=== PATIENT | female | born 1950 | race Caucasian/White ===

== ENCOUNTER 2019-08-20 10:03 | Outpatient (CLI) | payer MEDICARE, OTHER, SELFPAY ==
--- NOTE | 2019-08-20 18:10 | ONC CON_ITS ---
Dr. Conroy New Patient Note Patient: Lindsay Felix Unit #: [id number]: 1950 Dicatated By: Timo Conroy M.D.Date of Visit: Aug 20, 2019 Onc MED New Patient/Consult Referring Physician: Dr. VITO CRAIG D.O. Chief Complaint: Breast cancer. History of Present Illness: This is a 69 year-old woman with grade 3 invasive ductal carcinoma of the right breast, stage IIA (pT2, pN0, M0), ER/SD positive, HER-2/risa negative, and Oncotype DX score 12. She had presented in the latter part of 2018 with a lump in her right breast. At the time she was living in [facility]. Based on her clinical evaluation there, malignancy was suspected, and she then returned home to the [facility] for further treatment. Right diagnostic mammogram on 02/18/2019 reported a 2.9 cm mass at the 11 o'clock position of the right breast with normal-appearing right axillary lymph nodes. Biopsy of the breast mass on 02/19/2019 showed grade 2 invasive ductal carcinoma which was ER +100% and SD positive at 95%. There is reported to be negative for overexpression of HER-2/risa. The Ki-67 was 15%. She underwent right breast lumpectomy with axillary sentinel lymph node biopsy on 03/23/2019. Pathology showed grade 3 invasive ductal carcinoma measuring 4.5 cm. DCIS was noted to be present. Lymphovascular invasion also was present. The margins were negative. There was no involvement in 3 lymph nodes. She then underwent radiation to the right breast, completed on 05/22/2019 to a total dose of 4256 cGy to the breast with an additional 400 cGy cavity boost. She did develop some skin reaction and fatigue during the radiation, but overall she tolerated it well. Based on her Oncotype DX score, adjuvant chemotherapy was not recommended. She began adjuvant hormonal therapy with anastrozole 1 mg daily concurrently with the radiation. She has now moved to this area and she wishes to continue follow-up for her breast cancer here. She has been feeling pretty good generally. She does complain that she tires quickly, and that she now attributes to the anastrozole. Her ECOG score is 1. She has good appetite. She has had a weight gain of 25 pounds since returning from [place]. She thinks most of that is related to being less active. She has not had fever. She has had some hot flashes and sweating with the anastrozole, but she feels that it is tolerable. She indicates that she developed significant nerve damage from her axillary lymph node biopsy, including numbness and the axillary area and pain rating down the right arm. Her numbness has subsequently improved. She still has pain intermittently, but it is managed adequately with gabapentin. She does not have any significant joint or bone pain. She apparently did have a baseline bone density, but I do not have that report available. Past Medical History: Her medical history includes anxiety, atrophic kidney, chronic kidney disease, depression, glaucoma, and hypertension. Past Surgical History: She underwent biopsy of right breast mass on 02/19/2019 and she underwent right breast lumpectomy with axillary sentinel lymph node biopsy on 03/23/2019. Her other surgical/procedural history includes right foot surgery and tubal ligation. She had a colonoscopy in 2017. Medications: ALPRAZolam 1 Tablet (of 0.5 mg) Oral at bedtime PRN, Anastrozole 1 Tablet (of 1 mg) Oral daily, Furosemide 1 Tablet (of 20 mg) Oral daily, Gabapentin 1 Capsule (of 100 mg) Oral t.i.d., Latanoprost 1 Drop(s) (of 0.005 %) Solution Ophthalmic daily, Sertraline HCl 1 Tablet (of 100 mg) Oral daily, Spironolactone 1 Tablet (of 100 mg) Oral b.i.d., Timolol Hemihydrate 1 Drop(s) (of 0.5 %) Solution Ophthalmic daily Allergies: Codeine Sulfate, Iodine, and Penicillins. Social History: Ms. Felix is and she is retired. She is a non-smoker. She does not drink alcohol. Family History: Her father is , cause unknown to the patient. Her mother had heart disease and at age 90. Her maternal grandfather of heart attack. She has 2 older sisters who are in good health. There is no history of breast or ovarian cancer in the family. Review Of Symptoms: Constitutional - She has been feeling tired since she started the anastrozole. She has good appetite. She has had a 25 pound weight gain, which she attributes to being less active. She has not had fever. She does have hot flashes/sweating a few times a day and at night. ECOG score is 1, Eyes - She has glaucoma. She has had no recent change in vision, ENMT - No hearing loss or tinnitus. No sinus congestion/drainage. No mouth sores. No sore throat or difficulty swallowing, Hematologic/Lymphatic - No abnormal bruising or bleeding, Respiratory - No shortness of breath. No cough. No pleuritic pain or hemoptysis, Cardiovascular - No angina pain. No palpitations, Gastrointestinal - No nausea or vomiting. No heartburn or acid reflux. No diarrhea or constipation. No blood in the stool or black stools, Genitourinary (F) - No dysuria or hematuria. No urinary frequency. No urgency or incontinence, Musculoskeletal - No joint or bone pain, Integumentary - No skin rash or other skin changes, Neurologic - No headache or dizziness. She was having numbness/tingling in the right axillary area and right arm following the surgery. The numbness has resolved, but she still has significant neuropathy pain in her right arm. She does get benefit with gabapentin, Psychiatric - She has anxiety and depression, adequately managed with medication. She also has insomnia. Vital Signs: Performed on Aug 20, 2019 11:08: 7, 34.86 (HIGH), 2.07 sq.m, 66.00 in, 96 %, 86 /min, 24 /min, 168/100 mm(hg) (HIGH), 97.9 F (LOW), and 216.0 lbs (HIGH). Physical Examination: Constitutional - She appears to be in good general health, Eyes - Sclerae nonicteric. Conjunctivae clear, ENMT - No lesions noted in the oral cavity, Neck - No mass or thyromegaly, Hematologic/Lymphatic - No cervical or clavicular adenopathy, Respiratory - Lungs are clear with good air movement bilaterally, Cardiovascular - Heart rhythm is regular. There is no murmur, gallop, or rub noted, Breasts - There is mild induration throughout the right breast and there is mild residual erythema/discoloration. There are no breast masses noted. There is no axillary adenopathy, Abdomen - Moderately distended. Liver and spleen are not enlarged. There is no abdominal mass or ascites noted and there is no inguinal adenopathy, Back/Spine - No spine or CVA tenderness noted, Extremities - No edema. Dorsalis pedis pulses are palpable bilaterally, Integumentary - No rashes. No suspicious skin lesions noted, Neurologic - No focal neurologic deficits noted. Impression: 1. Patient with grade 3 invasive ductal carcinoma of the right breast, stage IIA (pT2, pN0, M0), ER/SD positive, HER-2/risa negative, and Oncotype DX score 12. 2. She underwent biopsy of right breast mass on 02/19/2019 followed by right breast lumpectomy with axillary sentinel lymph node biopsy on 03/23/2019. Based on the Oncotype DX score, adjuvant chemotherapy was not recommended. 3. She then underwent radiation to the right breast, completed on 05/22/2019 to a total dose of 4256 cGy to the breast plus an additional 400 cGy cavity boost. 4. Adjuvant hormonal therapy with anastrozole 1 mg daily began concurrently with radiation. Her other medical illnesses include: 5. Hypertension. 6. Chronic kidney disease. 7. She has history of atrophic kidney. 8. Glaucoma. 9. Anxiety/depression. She had developed some toxicity with the radiation, she does appear to be showing adequate recovery. She also has had some neuropathy pain in the right arm following her axillary lymph node biopsy. Thus far it has been managed adequately with a low-dose of gabapentin. She is experiencing some fatigue and hot flashes with the anastrozole, but at this point the side effects appear tolerable. Overall, she appears to be doing pretty well clinically following completion of her surgery and radiation. Plan: She will continue adjuvant hormonal therapy with anastrozole 1 mg daily. She had laboratory studies done earlier today by Dr. Craig, and I will check on those results. She will continue her regular follow-up and laboratory monitoring with Dr. Craig. I will schedule her for surveillance diagnostic mammograms in January. I will see her for a follow-up visit in 6 months. Signed By: Timo Conroy M.D. <<Signature on File>>
== END 2019-08-20 10:04 | disposition home or self-care (01) ==
LOC: ONCMED 10:13
PROVIDERS: PCP Family Medicine; Referring Provider Family Medicine; Visit Provider Internal Medicine Medical Oncology
DX: C50.411 Malignant neoplasm of upper-outer quadrant of right female breast (principal); Z17.0 Estrogen receptor positive status [ER+]; I12.9 Hypertensive chronic kidney disease with stage 1 through stage 4 chronic kidney disease, or unspecified chronic kidney disease; N18.9 Chronic kidney disease, unspecified; F41.8 Other specified anxiety disorders; H40.9 Unspecified glaucoma; M79.2 Neuralgia and neuritis, unspecified; Y84.8 Other medical procedures as the cause of abnormal reaction of the patient, or of later complication, without mention of misadventure at the time of the procedure; Z79.811 Long term (current) use of aromatase inhibitors; Z92.3 Personal history of irradiation
CPT/HCPCS: 80053; 80061; 82044; 85025; 99205

== ENCOUNTER → 2019-09-01 10:56 | Outpatient (BNVA) | payer MEDICARE, OTHER, SELFPAY | PROVIDERS: PCP Family Medicine; Visit Provider Family Medicine | DX: E87.6 Hypokalemia (principal) | CPT/HCPCS: 80048 ==

== ENCOUNTER → 2019-11-20 09:40 | Outpatient (BNVA) | payer MEDICARE, OTHER, SELFPAY | PROVIDERS: PCP Family Medicine; Visit Provider Family Medicine | DX: I10 Essential (primary) hypertension (principal); N26.1 Atrophy of kidney (terminal) | CPT/HCPCS: 80048 ==

== ENCOUNTER → 2019-11-24 11:34 | Outpatient (BNVA) | payer MEDICARE, OTHER, SELFPAY | PROVIDERS: PCP Family Medicine; Visit Provider Family Medicine | DX: Z11.59 Encounter for screening for other viral diseases (principal); Z20.828 Contact with and (suspected) exposure to other viral communicable diseases | CPT/HCPCS: 87635 ==

== ENCOUNTER → 2019-11-26 10:11 | Outpatient (BNVA) | payer MEDICARE, OTHER, SELFPAY | PROVIDERS: PCP Family Medicine; Visit Provider Family Medicine | DX: R79.89 Other specified abnormal findings of blood chemistry (principal) | CPT/HCPCS: 80048 ==

== ENCOUNTER → 2019-12-11 09:52 | Outpatient (BNVA) | payer MEDICARE, OTHER, SELFPAY | PROVIDERS: PCP Family Medicine; Visit Provider Family Medicine | DX: I10 Essential (primary) hypertension (principal); N26.1 Atrophy of kidney (terminal); G25.0 Essential tremor | CPT/HCPCS: 80048 ==

== ENCOUNTER → 2020-01-11 09:22 | Outpatient (BNVA) | payer MEDICARE, OTHER, SELFPAY | PROVIDERS: PCP Family Medicine; Visit Provider Family Medicine | DX: I10 Essential (primary) hypertension (principal) | CPT/HCPCS: 80048 ==

== ENCOUNTER 2020-02-22 07:36 | Outpatient (CLI) | payer MEDICARE, OTHER, SELFPAY ==
--- NOTE | 2020-02-22 07:42 | MM_ITS ---
WS: [id number] DIAGNOSTIC BILATERAL DIGITAL MAMMOGRAM WITH CAD HISTORY: HX OF BREAST CA COMPARISON: There are no prior mammograms available for review. Prior imaging report from [facility] in [facility] reviewed. Report from 02/18/2019 is reviewed which described a BI-RADS 5 mass in the RIGHT breast. TECHNIQUE: Bilateral craniocaudad, mediolateral oblique, and mediolateral views are submitted. Comput er aided detection utilized. Breast composition: There are scattered areas of fibroglandular density. Postsurgical change with sca rring and distortion in the upper outer quadrant of the RIGHT breast. There are benign lucent calcifi cations also present. Overall increased trabecular thickening and skin thickening throughout the RIGH T breast. Surgical clip noted in the RIGHT axilla from prior mary dissection. MM/[place] [id number] IMPRESSION: BI-RADS: 0-Incomplete: Need additional imaging evaluation FOLLOW UP: See Report 1. No prior mammograms are available for review. Strongly recommend when these mammograms become available for review an addendum can be submitted. 2. Postsurgical and postradiation changes involving the RIGHT breast could carlee y well be all within normal limits for recent surgery and radiation. Correlatio n with prior studies to evaluate for subtle change recommended. If these prior mammograms do not become available for review diagnostic RIGHT breast mammogram follow-up in 6 months should be obtained.
== END 2020-02-22 07:37 | disposition home or self-care (01) ==
LOC: RADSHAW 07:41
PROVIDERS: PCP Family Medicine; Visit Provider Internal Medicine Medical Oncology
DX: Z85.3 Personal history of malignant neoplasm of breast (principal)
CPT/HCPCS: 77066

== ENCOUNTER 2020-02-25 07:17 | Outpatient (CLI) | payer MEDICARE, OTHER, SELFPAY ==
--- NOTE | 2020-02-28 11:02 | ONC FU_ITS ---
Dr. Conroy Patient Follow-Up Note Patient: Lindsay Felix Unit #: [id number]: 1950 Dicatated By: Timo Conroy M.D.Date of Visit:Feb 25, 2020 Onc Med Follow-up/Prog Note Chief Complaint: Breast cancer. History of Present Illness: This is a 69 year-old woman with grade 3 invasive ductal carcinoma of the right breast, stage IIA (pT2, pN0, M0), ER/IA positive, HER-2/risa negative. Oncotype DX was low risk with recurrence score 12. She had presented in the latter part of 2019 with a lump in her right breast. At the time she was living in [place]. Based on her clinical evaluation there, malignancy was suspected, and she then returned home to the [facility] for further treatment. Right diagnostic mammogram on 02/18/2019 reported a 2.9 cm mass at the 11 o'clock position of the right breast with normal-appearing right axillary lymph nodes. Biopsy of the breast mass on 02/19/2019 showed grade 2 invasive ductal carcinoma which was ER +100% and IA positive at 95%. There is reported to be negative for overexpression of HER-2/risa. The Ki-67 was 15%. She underwent right breast lumpectomy with axillary sentinel lymph node biopsy on 03/23/2019. Pathology showed grade 3 invasive ductal carcinoma measuring 4.5 cm. DCIS was noted to be present. Lymphovascular invasion also was present. The margins were negative. There was no involvement in 3 lymph nodes. She then underwent radiation to the right breast, completed on 05/22/2019 to a total dose of 4256 cGy to the breast with an additional 400 cGy cavity boost. She did develop some skin reaction and fatigue during the radiation, but overall she tolerated it well. Based on her Oncotype DX score, adjuvant chemotherapy was not recommended. She began adjuvant hormonal therapy with anastrozole 1 mg daily concurrently with the radiation. She had subsequently moved to this area. I had seen her initially on 08/20/2019 for further management of her breast cancer. Her other medical illnesses include hypertension, chronic kidney disease, glaucoma, and anxiety/depression. She has a history of atrophic kidney. She is a non-smoker. She is seen for a follow-up visit. She has been feeling pretty good generally. She does complain that she is tired most of the time, but she still has normal activity. ECOG score is 0. She has good appetite. She has not had fever. She has a little bit of hot flashes/sweating. She does complain that she still has some soreness in the right arm and axillary area. It has generally been managed pretty well with gabapentin. She reports having some sinus drainage, which is chronic. She does not have cough, and she does not complain of shortness of breath or chest pain. She has no GI or complaints. She has no significant joint or bone pain. She does report that she has been a little shaky. She has no focal neurologic symptoms. Medications: ALPRAZolam 1 Tablet (of 0.5 mg) Oral at bedtime PRN, Anastrozole 1 Tablet (of 1 mg) Oral daily, Furosemide 1 Tablet (of 20 mg) Oral daily, Gabapentin 1 Capsule (of 100 mg) Oral t.i.d., Latanoprost 1 Drop(s) (of 0.005 %) Solution Ophthalmic daily, Metoprolol Tartrate 0.5 Tablet (of 25 mg) Oral b.i.d., Norvasc 1 (5 mg) Tablet Oral daily, Sertraline HCl 1 Tablet (of 100 mg) Oral daily, Spironolactone 1 Tablet (of 100 mg) Oral b.i.d., Timolol Hemihydrate 1 Drop(s) (of 0.5 %) Solution Ophthalmic daily Allergies: Codeine Sulfate, Iodine, and Penicillins. Vital Signs: Performed on Feb 25, 2020 08:51 Height - 66.00 in Weight - 214.4 lbs (LOW) BSA - 2.06 sq.m BMI - 34.61 (HIGH) Temperature - 97.8 F (LOW) Pulse - 96 /min Respiration - 16 /min BP - 142/94 mm(hg) (HIGH) O2 Sat - 96 % Pain - 0 Physical Examination: Constitutional - She looks good generally, Eyes - Sclerae nonicteric. Conjunctivae clear, ENMT - No lesions noted in the oral cavity, Hematologic/Lymphatic - No cervical or clavicular adenopathy, Respiratory - Lungs are clear with good air movement bilaterally, Cardiovascular - Heart rhythm is regular. There is no murmur, gallop, or rub noted, Breasts - There is nodularity at the lumpectomy site in the right breast, the breast is still slightly discolored. There is no other mass noted. There is no axillary adenopathy noted, Abdomen - Soft. Liver and spleen are not enlarged. There is no abdominal mass or ascites noted and there is no inguinal adenopathy, Extremities - No edema, Neurologic - No focal neurologic deficits noted. Historic Problem List: 1. Grade 3 invasive ductal carcinoma of the right breast, stage IIA (pT2, pN0, M0), ER/IA positive, HER-2/risa negative. Oncotype DX was low risk with recurrence score 12. 2. She underwent biopsy of right breast mass on 02/19/2019 followed by right breast lumpectomy with axillary sentinel lymph node biopsy on 03/23/2019. Based on the Oncotype DX score, adjuvant chemotherapy was not recommended. 3. She then underwent radiation to the right breast, completed on 05/22/2019 to a total dose of 4256 cGy to the breast plus an additional 400 cGy cavity boost. 4. Adjuvant hormonal therapy with anastrozole 1 mg daily began concurrently with radiation. 5. Hypertension. 6. Chronic kidney disease. 7. She has history of atrophic kidney. 8. Glaucoma. 9. Anxiety/depression. She had developed some toxicity with the radiation, she does appear to be showing adequate recovery. She also has had some neuropathy pain in the right arm following her axillary lymph node biopsy. Thus far it has been managed adequately with a low-dose of gabapentin. She is experiencing some fatigue and hot flashes with the anastrozole, but at this point the side effects appear tolerable. Overall, she appears to be doing pretty well clinically following completion of her surgery and radiation. Problems Addressed with this Encounter and Plan: Grade 3 invasive ductal carcinoma of the right breast, stage IIA (pT2, pN0, M0), ER/IA positive, HER-2/risa negative. Oncotype DX was low risk with recurrence score 12. Her treatment included right breast lumpectomy with axillary sentinel lymph node biopsy on 03/23/2019 followed by radiation to the right breast, completed on 05/22/2019 to a total dose of 4256 cGy to the breast plus an additional 400 cGy cavity boost. Based on the Oncotype DX score, adjuvant chemotherapy was not recommended. Adjuvant hormonal therapy with anastrozole 1 mg daily began concurrently with radiation. During follow-up she has continued to have some discomfort in the right arm and axillary area, but it has been managed adequately with gabapentin. She seems to tolerate the anastrozole with significant no adverse effects. Thus far there has been no evidence of recurrence of the breast cancer. She continues adjuvant hormonal therapy with anastrozole 1 mg daily. She will be scheduled for a follow-up visit in 6 months. She has require ongoing surveillance for bone health. She did have a DEXA scan prior to moving here in 2019. Signed By: Timo Conroy M.D. <<Signature on File>>
== END 2020-02-25 07:18 | disposition home or self-care (01) ==
LOC: ONCMED 07:21
PROVIDERS: PCP Family Medicine; Visit Provider Internal Medicine Medical Oncology
DX: C50.411 Malignant neoplasm of upper-outer quadrant of right female breast (principal); Z17.0 Estrogen receptor positive status [ER+]; G56.81 Other specified mononeuropathies of right upper limb; Z79.811 Long term (current) use of aromatase inhibitors; I12.9 Hypertensive chronic kidney disease with stage 1 through stage 4 chronic kidney disease, or unspecified chronic kidney disease; N18.9 Chronic kidney disease, unspecified; F41.8 Other specified anxiety disorders; Z92.3 Personal history of irradiation; Z79.899 Other long term (current) drug therapy
CPT/HCPCS: 99214

== ENCOUNTER → 2020-03-02 10:00 | Outpatient (BNVA) | payer MEDICARE, OTHER, SELFPAY | PROVIDERS: PCP Family Medicine; Visit Provider Family Medicine | DX: N18.31 Chronic kidney disease, stage 3a (principal) | CPT/HCPCS: 80069; 81003; 82043 ==

== ENCOUNTER 2020-05-24 08:22 | Outpatient (CLI) | payer MEDICARE, OTHER, SELFPAY ==
--- NOTE | 2020-05-24 08:33 | US_ITS ---
WS: [id number] RENAL ULTRASOUND HISTORY: STAGE 3 CHRONIC KIDNEY DZ COMPARISON: None available. TECHNIQUE: 2-D and color Doppler imaging of the kidney submitted. Right kidney: 10.0 cm x 4.1 cm x 5.4 cm. Normal echogenicity with no hydronephrosis or mass. Left kidney: 10.1 cm x 4.1 cm x 4.9 cm. Normal size kidney. Mild thinning of the renal cortex in the lower pole. No mass or obstruction. Aorta: Normal. Urinary Bladder: Nondistended. US/US renal BI* [id number] IMPRESSION: 1. Normal echogenicity of each kidney with no hydronephrosis. 2. Mild focal cortical thinning lower pole LEFT kidney.
== END 2020-05-24 08:23 | disposition home or self-care (01) ==
LOC: US 08:26
PROVIDERS: PCP Family Medicine; Visit Provider Internal Medicine Nephrology
DX: N18.30 Chronic kidney disease, stage 3 unspecified (principal)
CPT/HCPCS: 76770; 80069; 82043; 85025

== ENCOUNTER → 2020-09-06 08:20 | Outpatient (BNVA) | payer MEDICARE, OTHER, SELFPAY | PROVIDERS: PCP Family Medicine; Visit Provider Family Medicine | DX: I10 Essential (primary) hypertension (principal); G25.0 Essential tremor; E78.5 Hyperlipidemia, unspecified; F41.9 Anxiety disorder, unspecified; F32.9 Major depressive disorder, single episode, unspecified | CPT/HCPCS: 80053; 80061 ==

== ENCOUNTER 2020-10-04 15:51 | Outpatient (CLI) | payer MEDICARE, OTHER, SELFPAY ==
--- NOTE | 2020-10-05 07:42 | ONC FU_ITS ---
Dr. Conroy Patient Follow-Up Note Patient: Lindsay Felix Unit #: [id number]: 1950 Dicatated By: Timo Conroy M.D.Date of Visit:Oct 04, 2020 Onc Med Follow-up/Prog Note Chief Complaint: Breast cancer. History of Present Illness: This is a 70 year-old woman with grade 3 invasive ductal carcinoma of the right breast, stage IB (pT2, pN0, M0), ER/NV positive, HER-2/risa negative. Oncotype DX was low risk with recurrence score 12. She had presented in the latter part of 2019 with a lump in her right breast. At the time she was living in [facility]. Based on her clinical evaluation there, malignancy was suspected, and she then returned home to the [facility] for further treatment. Right diagnostic mammogram on 02/18/2019 reported a 2.9 cm mass at the 11 o'clock position of the right breast with normal-appearing right axillary lymph nodes. Biopsy of the breast mass on 02/19/2019 showed grade 2 invasive ductal carcinoma which was ER +100% and NV positive at 95%. It was reported to be negative for overexpression of HER-2/risa. The Ki-67 was 15%. She underwent right breast lumpectomy with axillary sentinel lymph node biopsy on 03/23/2019. Pathology showed grade 3 invasive ductal carcinoma measuring 4.5 cm. DCIS was noted to be present. Lymphovascular invasion also was present. The margins were negative. There was no involvement in 3 lymph nodes. Her Oncotype DX was low risk with recurrence score 12. Based on her Oncotype DX score, adjuvant chemotherapy was not recommended. She then underwent radiation to the right breast, completed on 05/22/2019 to a total dose of 4256 cGy to the breast with an additional 400 cGy cavity boost. She did develop some skin reaction and fatigue during the radiation, but overall she tolerated it well. She began adjuvant hormonal therapy with anastrozole 1 mg daily concurrently with the radiation. She had subsequently moved to this area. I had seen her initially on 08/20/2019 for further management of her breast cancer. She continued adjuvant hormonal therapy with anastrozole 1 mg daily, as she appeared to be having no significant adverse effects with it. Her other medical illnesses include hypertension, chronic kidney disease, glaucoma, and anxiety/depression. She has a history of atrophic kidney. She is a non-smoker. She is seen for a follow-up visit. She now says she has been having all kinds of problems with the anastrozole. She complains that her blood pressures been too high. She has been having frequent hot flashes/sweating, and she feels too hot all the time. She also has been a lot more tired, though she still has maintained normal activity. Her ECOG score is 0. She says her appetite is too good, and she has gained weight. She has not had fever. She has not had sore throat or cough. She occasionally has shortness of breath. She does not complain of chest pain. She has no GI or complaints. She still gets twinges of pain in her right arm since her surgery. She has no significant joint or bone pain, though. She does not complain of headache or dizziness. She has no numbness/paresthesia or other focal neurologic symptoms. She has had problems with anxiety/depression over the years, but it is managed adequately with medication. Medications: ALPRAZolam 1 Tablet (of 0.5 mg) Oral at bedtime PRN, Anastrozole 1 Tablet (of 1 mg) Oral daily, Furosemide 1 Tablet (of 20 mg) Oral daily, Gabapentin 1 Capsule (of 100 mg) Oral t.i.d., Latanoprost 1 Drop(s) (of 0.005 %) Solution Ophthalmic daily, Metoprolol Tartrate 0.5 Tablet (of 25 mg) Oral b.i.d., Propranolol HCl 1 Tablet Oral b.i.d., Sertraline HCl 1 Tablet (of 100 mg) Oral daily, Spironolactone 1 Tablet (of 100 mg) Oral b.i.d., Timolol Hemihydrate 1 Drop(s) (of 0.5 %) Solution Ophthalmic daily Allergies: Codeine Sulfate, Iodine, and Penicillins. Vital Signs: Performed on Oct 04, 2020 16:10 Height - 66.00 in Weight - 213 lbs (LOW) BSA - 2.05 sq.m BMI - 34.38 (HIGH) Temperature - 97 F (LOW) Pulse - 84 /min Respiration - 18 /min BP - 158/94 mm(hg) (HIGH) O2 Sat - 97 % Pain - 0 Fatigue - 4 Physical Examination: Constitutional - She looks good generally, Eyes - Sclerae nonicteric. Conjunctivae clear, ENMT - No lesions noted in the oral cavity, Hematologic/Lymphatic - No cervical, clavicular, or axillary adenopathy, Respiratory - Lungs are clear with good air movement bilaterally, Cardiovascular - Heart rhythm is regular. There is no murmur, gallop, or rub noted, Abdomen - Soft. Liver and spleen are not enlarged. There is no abdominal mass or ascites noted and there is no inguinal adenopathy, Extremities - No edema, Neurologic - No focal neurologic deficits noted. Problem List: 1. Grade 3 invasive ductal carcinoma of the right breast, stage IB (pT2, pN0, M0), ER/NV positive, HER-2/risa negative. Oncotype DX was low risk with recurrence score 12. 2. Hypertension. 3. Chronic kidney disease. 4. She has history of atrophic kidney. 5. Glaucoma. 6. Anxiety/depression. Problems Addressed with this Encounter and Plan: Patient with grade 3 invasive ductal carcinoma of the right breast, stage IB (pT2, pN0, M0), ER/NV positive, HER-2/risa negative. Oncotype DX was low risk with recurrence score 12. Her treatment included right breast lumpectomy with axillary sentinel lymph node biopsy on 03/23/2019 followed by radiation to the right breast, completed on 05/22/2019 to a total dose of 4256 cGy to the breast plus an additional 400 cGy cavity boost. Based on the Oncotype DX score, adjuvant chemotherapy was not recommended. Adjuvant hormonal therapy with anastrozole 1 mg daily began concurrently with radiation. During follow-up she has continued to have some discomfort in the right arm and axillary area, but it has been managed adequately with gabapentin. Initially she seemed to tolerate the anastrozole with no significant adverse effects. However, since her last visit, she has developed multiple symptoms attributable to the anastrozole, including fatigue, hot flashes/sweating, and heat intolerance. Interestingly, she is not having any significant joint pain. Nonetheless, given the severity of her symptoms, I will have her stop the anastrozole. She will be scheduled for a follow-up visit in 1 month. Signed By: Timo Conroy M.D. <<Signature on File>>
== END 2020-10-04 15:52 | disposition home or self-care (01) ==
LOC: ONCMED 15:56
PROVIDERS: PCP Family Medicine; Visit Provider Internal Medicine Medical Oncology
DX: C50.411 Malignant neoplasm of upper-outer quadrant of right female breast (principal); Z17.0 Estrogen receptor positive status [ER+]; Z79.899 Other long term (current) drug therapy; Z92.3 Personal history of irradiation; Z90.11 Acquired absence of right breast and nipple
CPT/HCPCS: 99214

== ENCOUNTER 2020-11-08 11:28 | Outpatient (CLI) | payer MEDICARE, OTHER, SELFPAY ==
--- NOTE | 2020-11-08 12:22 | ONC FU_ITS ---
Dr. Conroy Patient Follow-Up Note Patient: Lindsay Felix Unit #: [id number]: 1950 Dicatated By: Timo Conroy M.D.Date of Visit:Nov 08, 2020 Onc Med Follow-up/Prog Note Chief Complaint: Breast cancer. 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 Oncotype DX was low risk with recurrence score 12. She had presented in the latter part of 2019 with a lump in her right breast. At the time she was living in [facility]. Based on her clinical evaluation there, malignancy was suspected, and she then returned home to the [facility] for further treatment. Right diagnostic mammogram on 02/18/2019 reported a 2.9 cm mass at the 11 o'clock position of the right breast with normal-appearing right axillary lymph nodes. Biopsy of the breast mass on 02/19/2019 showed grade 2 invasive ductal carcinoma which was ER +100% and MT positive at 95%. It was reported to be negative for overexpression of HER-2/risa. The Ki-67 was 15%. She underwent right breast lumpectomy with axillary sentinel lymph node biopsy on 03/23/2019. Pathology showed grade 3 invasive ductal carcinoma measuring 4.5 cm. DCIS was noted to be present. Lymphovascular invasion also was present. The margins were negative. There was no involvement in 3 lymph nodes. Her Oncotype DX was low risk with recurrence score 12. Based on her Oncotype DX score, adjuvant chemotherapy was not recommended. She then underwent radiation to the right breast, completed on 05/22/2019 to a total dose of 4256 cGy to the breast with an additional 400 cGy cavity boost. She did develop some skin reaction and fatigue during the radiation, but overall she tolerated it well. She began adjuvant hormonal therapy with anastrozole 1 mg daily concurrently with the radiation. She had subsequently moved to this area. I had seen her initially on 08/20/2019 for further management of her breast cancer. She continued adjuvant hormonal therapy with anastrozole 1 mg daily, as she appeared to be having no significant adverse effects with it. Her other medical illnesses include hypertension, chronic kidney disease, glaucoma, and anxiety/depression. She has a history of atrophic kidney. She is a non-smoker. INTERIM HISTORY: I had seen her for a scheduled visit on 10/04/2020. At that point she had developed side effects with the anastrozole, mainly fatigue and hot flashes. I felt that they were significant enough to have her stop the medication. She is seen now for a follow-up visit. She is feeling much better. She says the hot flashes almost completely gone. She has more energy now. Her ECOG score is 0. Her appetite is good. She has not had fever. She has no shortness of breath, cough, or chest pain. She has no GI or complaints. She has no significant joint or bone pain. She does not complain of headache or dizziness, and she has no focal neurologic symptoms. Medications: ALPRAZolam 1 Tablet (of 0.5 mg) Oral at bedtime PRN, Furosemide 1 Tablet (of 20 mg) Oral daily, Gabapentin 1 Capsule (of 100 mg) Oral t.i.d., Latanoprost 1 Drop(s) (of 0.005 %) Solution Ophthalmic daily, Metoprolol Tartrate 0.5 Tablet (of 25 mg) Oral b.i.d., Propranolol HCl 1 Tablet Oral b.i.d., Sertraline HCl 1 Tablet (of 100 mg) Oral daily, Spironolactone 1 Tablet (of 100 mg) Oral b.i.d., Timolol Hemihydrate 1 Drop(s) (of 0.5 %) Solution Ophthalmic daily Allergies: Codeine Sulfate, Iodine, and Penicillins. Vital Signs: Performed on Nov 08, 2020 11:45 Height - 66.00 in Weight - 214.8 lbs (HIGH) BSA - 2.06 sq.m BMI - 34.67 (HIGH) Temperature - 97.6 F (LOW) Pulse - 80 /min Respiration - 18 /min BP - 145/90 mm(hg) (HIGH) O2 Sat - 96 % Pain - 0 Fatigue - 6 Problem List: 1. Grade 3 invasive ductal carcinoma of the right breast, stage IB (pT2, pN0, M0), ER/MT positive, HER-2/risa negative. Oncotype DX was low risk with recurrence score 12. 2. Hypertension. 3. Chronic kidney disease. 4. She has history of atrophic kidney. 5. Glaucoma. 6. Anxiety/depression. 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 Oncotype DX was low risk with recurrence score 12. Her treatment included right breast lumpectomy with axillary sentinel lymph node biopsy on 03/23/2019 followed by radiation to the right breast, completed on 05/22/2019 to a total dose of 4256 cGy to the breast plus an additional 400 cGy cavity boost. Based on the Oncotype DX score, adjuvant chemotherapy was not recommended. Adjuvant hormonal therapy with anastrozole 1 mg daily began concurrently with radiation. During follow-up she continued to have some discomfort in the right arm and axillary area, but it was managed adequately with gabapentin. Initially she seemed to have been tolerating the anastrozole well. However, as of her visit on 10/04/2020 she had developed side effects, mainly fatigue and hot flashes, which I felt were significant enough to have her stop the medication. Since then she has been feeling much better. As such, she will now continue further adjuvant hormonal therapy with a trial of exemestane at 25 mg daily. She is advised that it also may cause fatigue or hot flashes and that it also commonly causes joint pain as a side effect. I will see her again in 3 months, or sooner as needed. Signed By: Timo Conroy M.D. <<Signature on File>>
== END 2020-11-08 11:29 | disposition home or self-care (01) ==
PROVIDERS: PCP Family Medicine; Visit Provider Internal Medicine Medical Oncology
DX: C50.411 Malignant neoplasm of upper-outer quadrant of right female breast (principal); Z17.0 Estrogen receptor positive status [ER+]; I12.9 Hypertensive chronic kidney disease with stage 1 through stage 4 chronic kidney disease, or unspecified chronic kidney disease; N18.9 Chronic kidney disease, unspecified; H40.9 Unspecified glaucoma; F41.8 Other specified anxiety disorders; Z79.811 Long term (current) use of aromatase inhibitors; Z79.899 Other long term (current) drug therapy; Z90.11 Acquired absence of right breast and nipple
CPT/HCPCS: 99214

== ENCOUNTER → 2020-11-24 00:01 | Outpatient (BNVA) | payer MEDICARE, OTHER, SELFPAY | PROVIDERS: PCP Family Medicine; Visit Provider Family Medicine | DX: H40.9 Unspecified glaucoma (principal); G25.0 Essential tremor; Z23 Encounter for immunization; R30.0 Dysuria | CPT/HCPCS: 81000; 87086 ==

== ENCOUNTER → 2021-04-03 09:31 | Outpatient (BNVA) | payer MEDICARE, OTHER, SELFPAY | PROVIDERS: PCP Family Medicine; Visit Provider Family Medicine | DX: N18.31 Chronic kidney disease, stage 3a (principal) | CPT/HCPCS: 80048 ==

== ENCOUNTER → 2021-06-02 09:05 | Outpatient (BNVA) | payer MEDICARE, OTHER, SELFPAY | PROVIDERS: PCP Family Medicine; Visit Provider Family Medicine | DX: H40.9 Unspecified glaucoma (principal); G25.0 Essential tremor; Z23 Encounter for immunization; R30.0 Dysuria; N18.31 Chronic kidney disease, stage 3a; I10 Essential (primary) hypertension | CPT/HCPCS: 80048 ==

== ENCOUNTER 2021-10-11 15:49 | Oncology outpatient (recurring) (ONCR) | payer MEDICARE, OTHER, SELFPAY | END 2021-10-11 23:59 | disposition home or self-care (01) | PROVIDERS: PCP Family Medicine; Visit Provider Internal Medicine Medical Oncology | DX: C50.411 Malignant neoplasm of upper-outer quadrant of right female breast (principal); Z17.0 Estrogen receptor positive status [ER+]; C77.3 Secondary and unspecified malignant neoplasm of axilla and upper limb lymph nodes; Z79.818 Long term (current) use of other agents affecting estrogen receptors and estrogen levels; Z79.891 Long term (current) use of opiate analgesic; R53.0 Neoplastic (malignant) related fatigue; Z92.21 Personal history of antineoplastic chemotherapy; Z92.3 Personal history of irradiation | CPT/HCPCS: 99214 ==

== ENCOUNTER 2021-11-15 07:58 | Outpatient (CLI) | payer MEDICARE, OTHER, SELFPAY ==
--- NOTE | 2021-11-15 08:02 | MM_ITS ---
WS: [id number] DIAGNOSTIC BILATERAL DIGITAL BREAST TOMOSYNTHESIS MAMMOGRAPHY WITH CAD HISTORY: HX OF BREAST CA COMPARISON: 02/22/2020 TECHNIQUE: Bilateral craniocaudad, mediolateral oblique, and mediolateral views are submitted with to mosdylan and SM. Computer aided detection utilized. Breast composition: There are scattered areas of fibroglandular density. Volume loss and trabecular t hickening and skin thickening involving the RIGHT breast. Postsurgical changes in the upper outer kaushik drant. There are dystrophic calcifications at the surgical site. No adverse change since the prior st udy. There are a few benign calcifications in the LEFT breast. MM/[place] [id number] IMPRESSION: BI-RADS: 2-Benign FOLLOW UP: 1 Year Follow-up
== END 2021-11-15 07:59 | disposition home or self-care (01) ==
PROVIDERS: PCP Family Medicine; Visit Provider Internal Medicine Medical Oncology
DX: Z85.3 Personal history of malignant neoplasm of breast (principal)
CPT/HCPCS: 77062; G0279

== ENCOUNTER → 2021-12-01 11:03 | Outpatient (BNVA) | payer MEDICARE, OTHER, SELFPAY | PROVIDERS: PCP Family Medicine; Visit Provider Family Medicine | DX: I10 Essential (primary) hypertension (principal); E78.5 Hyperlipidemia, unspecified; F41.9 Anxiety disorder, unspecified; F32.9 Major depressive disorder, single episode, unspecified; N18.31 Chronic kidney disease, stage 3a; G25.0 Essential tremor; Z23 Encounter for immunization | CPT/HCPCS: 80053; 80061; 82043; 85025 ==

== ENCOUNTER 2022-04-12 15:47 | Oncology outpatient (recurring) (ONCR) | payer MEDICARE, OTHER, SELFPAY | END 2022-05-11 23:59 | disposition home or self-care (01) | LOC: ONCMED 15:48 | PROVIDERS: PCP Family Medicine; Visit Provider Internal Medicine Medical Oncology | DX: C50.411 Malignant neoplasm of upper-outer quadrant of right female breast (principal); Z17.0 Estrogen receptor positive status [ER+]; Z79.818 Long term (current) use of other agents affecting estrogen receptors and estrogen levels; Z92.21 Personal history of antineoplastic chemotherapy; Z92.3 Personal history of irradiation | CPT/HCPCS: 99214 ==

== ENCOUNTER 2022-10-18 15:58 | Oncology outpatient (recurring) (ONCR) | payer MEDICARE, OTHER, SELFPAY | END 2022-11-10 23:59 | disposition home or self-care (01) | LOC: ONCMED 15:59 | PROVIDERS: PCP Family Medicine; Visit Provider Internal Medicine Medical Oncology | DX: C50.411 Malignant neoplasm of upper-outer quadrant of right female breast (principal); Z17.0 Estrogen receptor positive status [ER+]; Z79.818 Long term (current) use of other agents affecting estrogen receptors and estrogen levels; Z92.21 Personal history of antineoplastic chemotherapy; Z92.3 Personal history of irradiation | CPT/HCPCS: 99214 ==

== ENCOUNTER → 2022-10-29 09:06 | Outpatient (BNVA) | payer MEDICARE, OTHER, SELFPAY | PROVIDERS: PCP Family Medicine; Visit Provider Family Medicine | DX: I10 Essential (primary) hypertension (principal); Z78.0 Asymptomatic menopausal state; N18.31 Chronic kidney disease, stage 3a; F41.9 Anxiety disorder, unspecified; F32.9 Major depressive disorder, single episode, unspecified; G25.0 Essential tremor; Z79.899 Other long term (current) drug therapy | CPT/HCPCS: 80053; 80061; 82043; 83036; 85025 ==

== ENCOUNTER 2022-12-13 07:41 | Outpatient (CLI) | payer MEDICARE, OTHER, SELFPAY ==
--- NOTE | 2022-12-13 07:59 | MM_ITS ---
WS: [id number] BILATERAL 3D TOMOSYNTHESIS DIGITAL DIAGNOSTIC MAMMOGRAPHY WITH CAD CLINICAL INFORMATION: 1 year follow up breast cancer HISTORY: RIGHT lumpectomy COMPARISON: 2021 TECHNIQUE: Bilateral CC, MLO, and ML views. FINDINGS: Scattered fibroglandular densities bilaterally. Postoperative changes RIGHT lumpectomy with parenchym al fibrosis. Punctate and dystrophic calcifications. Lucent centered calcifications. Volume loss RIGH T breast. Surgical clips RIGHT axilla. No suspicious focal mass, asymmetry, calcifications, or architectural distortion. No evidence of adam gnancy. IMPRESSION: MM/[place] [id number] BI-RADS: 2-Benign FOLLOW UP: 1 Year Follow-up Recommend return to annual diagnostic mammography.
== END 2022-12-13 07:42 | disposition home or self-care (01) ==
LOC: RAD 07:41
PROVIDERS: PCP Family Medicine; Visit Provider Internal Medicine Medical Oncology
DX: C50.411 Malignant neoplasm of upper-outer quadrant of right female breast (principal)
CPT/HCPCS: 77062; G0279

== ENCOUNTER 2023-05-08 13:59 | Oncology outpatient (recurring) (ONCR) | payer MEDICARE, SELFPAY ==
[2023-05-08 14:32] LABS: Basophils # 0.1 10^3/uL (0.0-0.1); Basophils % 0.4 %; Eosinophils # 0.3 10^3/uL (0.0-0.8); Eosinophils % 2.3 %; Hematocrit 48.2 % (36-47); Lymphocytes # 1.7 10^3/uL (0.8-4.8); Lymphocytes % 12.3 %; Mean Corpuscular HGB Conc 33.2 g/dL (30-55); Mean Corpuscular Hemoglobin 29.6 pg (27-33); Mean Corpuscular Volume 89.3 fl (85-98); Mean Platelet Volume 9.1 fL (7.4-10.4); Monocytes # 0.9 10^3/uL (0.2-0.9); Monocytes % 6.9 %; Neutrophils % 77.3 %; Nucleated Red Blood Cells % 0 %; Platelet Count 354 10^3/cmm (157-399); Red Cell Distribution Width 13.2 % (12.1-15.1)
[2023-05-08 15:32] LABS: Alanine Aminotransferase 28 U/L (0-33); Albumin Level 4.6 g/dL (3.5-5.2); Alkaline Phosphatase 92 U/L (35-105); Anion Gap 16.7 (5-19); Aspartate Amino Transferase 23 U/L (0-32); Blood Urea Nitrogen 27 mg/dL (8-23); Calcium 9.8 mg/dL (8.5-10.5); Carbon Dioxide 26 mmol/L (22-29); Chloride 97 mmol/L (98-107); Creatinine Clr Calc Pharmacy 47.4149; Globulin 3.7 g/dL (1.3-4.6); Glomerular Filtration Rate 40.5 mL/min (90-130); Glucose 92 mg/dL (65-115); Osmolality Calculated 285 mOsm/kg (285-295); Potassium 4.7 mmol/L (3.5-5.1); Sodium 135 mmol/L (136-145); Total Bilirubin 0.6 mg/dL (0.15-1.2); Total Protein 8.3 g/dL (6.6-8.7)
== END 2023-05-12 23:59 | disposition home or self-care (01) ==
PROVIDERS: Internal Medicine; PCP Family Medicine; Visit Provider Internal Medicine Medical Oncology
DX: C50.411 Malignant neoplasm of upper-outer quadrant of right female breast (principal); Z17.0 Estrogen receptor positive status [ER+]; Z79.818 Long term (current) use of other agents affecting estrogen receptors and estrogen levels; Z92.21 Personal history of antineoplastic chemotherapy; Z92.3 Personal history of irradiation
CPT/HCPCS: 36415; 80053; 85025; 99213

== ENCOUNTER 2023-08-19 13:06 | Outpatient (CLI) | payer OTHER, SELFPAY ==
--- NOTE | 2023-08-19 13:30 | XR_ITS ---
WS: [id number] SCREENING DEXA SCAN V-Key CLINICAL INFORMATION: postmenopausal COMPARISON: None. FINDINGS: The L1-L4 bone mineral density measures 1.216 g/cm2. This corresponds to a T score score of 0.3 and Z score of 0.9. Left femoral neck bone mineral density measures 1.039 g/cm2. This corresponds to a T score of 0.2 and Z score of 1.0. Right femoral neck bone mineral density measures 1.060 g/cm2. This corresponds to a T score 0.4of and Z score of 1.2. Mean femoral neck bone mineral density measures 1.050 g/cm2. This corresponds to a T score of 0.3 and Z score of 1.1. XR/XR DEXA axial skeleton* [id number] IMPRESSION: Normal bone mineralization. Patient's FRAX calculated 10 year probability for major osteoporotic fracture i s 7.9% and osteoporotic hip fracture is 0.7%.
== END 2023-08-19 13:07 | disposition home or self-care (01) ==
PROVIDERS: PCP Family Medicine; Visit Provider Family Medicine
DX: Z78.0 Asymptomatic menopausal state (principal)
CPT/HCPCS: 77080

== ENCOUNTER 2023-10-30 06:00 | Outpatient (CLI) | payer MEDICARE, SELFPAY | END 2023-10-30 06:01 | disposition home or self-care (01) | LOC: RAD 11-15 13:24 | PROVIDERS: PCP Family Medicine; Visit Provider Family Medicine | DX: N18.32 Chronic kidney disease, stage 3b (principal) | CPT/HCPCS: 80053; 80061 ==

== ENCOUNTER 2023-12-20 08:10 | Oncology outpatient (recurring) (ONCR) | payer OTHER, SELFPAY ==
[2023-12-20 08:45] LABS: Basophils # 0.1 10^3/uL (0.0-0.1); Basophils % 0.6 %; Eosinophils # 0.3 10^3/uL (0.0-0.8); Eosinophils % 3.7 %; Hematocrit 45.2 % (36-47); Lymphocytes # 1.3 10^3/uL (0.8-4.8); Lymphocytes % 14.7 %; Mean Corpuscular HGB Conc 32.5 g/dL (30-55); Mean Corpuscular Volume 86.1 fl (85-98); Mean Platelet Volume 8.9 fL (7.4-10.4); Monocytes # 0.6 10^3/uL (0.2-0.9); Monocytes % 7.1 %; Neutrophils # 6.54 10^3/uL (1.8-7.7); Neutrophils % 72.8 %; Nucleated Red Blood Cells % 0 %; Platelet Count 332 10^3/cmm (157-399); Red Blood Count 5.25 10^6/uL (3.85-5.65); Red Cell Distribution Width 13.4 % (12.1-15.1); White Blood Count 8.98 10^3/uL (3.29-11.43)
[2023-12-20 08:59] LABS: Alanine Aminotransferase 19 U/L (0-33); Albumin Level 4.3 g/dL (3.5-5.2); Alkaline Phosphatase 96 U/L (35-105); Aspartate Amino Transferase 21 U/L (0-32); Blood Urea Nitrogen 20 mg/dL (8-23); Calcium 9.9 mg/dL (8.5-10.5); Carbon Dioxide 26 mmol/L (22-29); Chloride 99 mmol/L (98-107); Creatinine Clr Calc Pharmacy 67.6741; Globulin 3.1 g/dL (1.3-4.6); Glucose 128 mg/dL (65-115); Osmolality Calculated 288 mOsm/kg (285-295); Sodium 137 mmol/L (136-145); Total Bilirubin 0.4 mg/dL (0.15-1.2); Total Protein 7.4 g/dL (6.6-8.7)
[2023-12-20 09:17] LABS: Slide Review Slide Review Perform
== END 2024-01-11 23:59 | disposition home or self-care (01) ==
PROVIDERS: Nurse Practitioner Family; PCP Family Medicine; Visit Provider Internal Medicine Medical Oncology
DX: C50.411 Malignant neoplasm of upper-outer quadrant of right female breast (principal); Z17.0 Estrogen receptor positive status [ER+]; Z79.818 Long term (current) use of other agents affecting estrogen receptors and estrogen levels; Z92.21 Personal history of antineoplastic chemotherapy; Z92.3 Personal history of irradiation
CPT/HCPCS: 36415; 80053; 85025; 99213

== ENCOUNTER 2024-01-16 08:44 | Outpatient (CLI) | payer OTHER, SELFPAY ==
--- NOTE | 2024-01-16 09:00 | MM_ITS ---
WS: [id number] BILATERAL 3D TOMOSYNTHESIS DIGITAL DIAGNOSTIC MAMMOGRAPHY WITH CAD CLINICAL INFORMATION: hx of breast CA HISTORY: RIGHT breast cancer with lumpectomy COMPARISON: 2022 TECHNIQUE: Bilateral CC, MLO, and ML views. FINDINGS: Scattered fibroglandular densities bilaterally. Prior postoperative changes RIGHT breast with lumpect nuvia. Parenchymal fibrosis RIGHT breast with treatment related changes. Dystrophic calcifications RIGH T breast. LEFT breast appears unchanged. Volume loss RIGHT breast. Surgical clips RIGHT axilla. No suspicious focal mass, asymmetry, calcifications, or architectural distortion. No evidence of adam gnancy. MM/MM diag BI tomosynthesis [id number] IMPRESSION: DENSITY: There are scattered areas of fibroglandular density. BI-RADS: 2 - Benign. FOLLOW UP: 1 Year Follow-up Recommend return to annual diagnostic mammography.
== END 2024-01-16 08:45 | disposition home or self-care (01) ==
LOC: RAD 08:52
PROVIDERS: PCP Family Medicine; Visit Provider Family Medicine
DX: C50.411 Malignant neoplasm of upper-outer quadrant of right female breast (principal); N60.21 Fibroadenosis of right breast; R92.323 Mammographic fibroglandular density, bilateral breasts; Z98.890 Other specified postprocedural states; R92.1 Mammographic calcification found on diagnostic imaging of breast
CPT/HCPCS: 77062; G0279

== ENCOUNTER 2024-07-29 10:53 | Oncology outpatient (recurring) (ONCR) | payer OTHER, SELFPAY ==
[2024-07-29 11:16] LABS: Basophils # 0.1 10^3/uL (0.0-0.1); Basophils % 0.7 %; Eosinophils # 0.2 10^3/uL (0.0-0.8); Eosinophils % 2.1 %; Hematocrit 47.8 % (36-47); Lymphocytes # 1.5 10^3/uL (0.8-4.8); Lymphocytes % 13.8 %; Mean Corpuscular HGB Conc 32.8 g/dL (30-55); Mean Corpuscular Hemoglobin 28.6 pg (27-33); Mean Corpuscular Volume 87.1 fl (85-98); Monocytes # 0.7 10^3/uL (0.2-0.9); Monocytes % 6.5 %; Neutrophils # 8.45 10^3/uL (1.8-7.7); Neutrophils % 75.8 %; Nucleated Red Blood Cells % 0 %; Platelet Count 304 10^3/cmm (157-399); Red Blood Count 5.49 10^6/uL (3.85-5.65); Red Cell Distribution Width 13.2 % (12.1-15.1); White Blood Count 11.15 10^3/uL (3.29-11.43)
[2024-07-29 11:33] LABS: Alanine Aminotransferase 21 U/L (0-33); Albumin Level 4.5 g/dL (3.5-5.2); Alkaline Phosphatase 94 U/L (35-105); Anion Gap 14.9 (5-19); Aspartate Amino Transferase 19 U/L (0-32); Blood Urea Nitrogen 24 mg/dL (8-23); Calcium 10.3 mg/dL (8.5-10.5); Carbon Dioxide 28 mmol/L (22-29); Chloride 99 mmol/L (98-107); Globulin 3.7 g/dL (1.3-4.6); Glucose 136 mg/dL (65-115); Osmolality Calculated 290 mOsm/kg (285-295); Potassium 4.9 mmol/L (3.5-5.1); Sodium 137 mmol/L (136-145); Total Bilirubin 0.6 mg/dL (0.15-1.2); Total Protein 8.2 g/dL (6.6-8.7)
== END 2024-08-10 23:59 | disposition home or self-care (01) ==
PROVIDERS: Nurse Practitioner Family; PCP Family Medicine; Visit Provider Internal Medicine Medical Oncology
DX: C50.411 Malignant neoplasm of upper-outer quadrant of right female breast (principal); Z17.0 Estrogen receptor positive status [ER+]; Z92.3 Personal history of irradiation; Z79.899 Other long term (current) drug therapy
CPT/HCPCS: 36415; 80053; 85025; 99213

== ENCOUNTER 2025-01-27 15:09 | Oncology outpatient (recurring) (ONCR) | payer OTHER, SELFPAY | END 2025-02-10 23:59 | disposition home or self-care (01) | PROVIDERS: PCP Family Medicine; Visit Provider Internal Medicine | DX: C50.411 Malignant neoplasm of upper-outer quadrant of right female breast (principal); Z17.0 Estrogen receptor positive status [ER+]; Z92.3 Personal history of irradiation; Z79.818 Long term (current) use of other agents affecting estrogen receptors and estrogen levels | CPT/HCPCS: 99213 ==